=== PATIENT | female | born 1960 | race African-American/Black ===

== ENCOUNTER 2016-11-11 11:22 | Emergency (ER) | payer OTHER ==
[~2016-11-11] VITALS: Ht 167.6 cm; Wt 86.0 kg
[~2016-11-11 11:22] MED LIST: ATENOLOL25 M1 PO; COMBIVENT200 INHALA; CYCLOBENZAPRINE10 MG PO; ENDOCET 5-3251 EACH PO; GABAPENTIN400 MG PO; LISINOPRIL10 MG PO; LOVENOX40 MG/0.4 SC; MICARDIS HCT1 TABLET PO; MICARDIS40 MG PO; MORPHINE SULFAT15 M1 PO; NEXIUM20 MG PO; NEXIUM40 MG PO; NOHOMEMEDS; NORCO 5/3251 TABLET PO; NORVASC5 MG PO; OXYCODONE HCL5 MG PO; PERCOCET 10/1 TABLET PO; PERCOCET 5/31 TABLET PO; PERCOCET 7.5-31 EACH PO; PRILOSEC20 MG PO; PROAIR HFA8.5 GM IH; SPIRIVA1 INHALATI IH; SYMBICORT60 INHALAT IH; VALIUM5 MG PO; ZANTAC15 MG/ML PO; ZANTAC150 M1 PO
[2016-11-11] MEDS ORDERED: PEN-VEE K,VEET500 MG PO (14:15)
[2016-11-11 14:51] VITALS: BP 141/92
== END 2016-11-11 14:54 | disposition home or self-care (01) ==
LOC: EME 11:22
DX: S02.5XXA Fracture of tooth (traumatic), initial encounter for closed fracture (principal); K04.7 Periapical abscess without sinus; Z87.891 Personal history of nicotine dependence
CPT/HCPCS: 99281; 99283

== ENCOUNTER 2017-01-08 16:02 | Emergency (ER) | payer OTHER ==
[~2017-01-08] VITALS: Ht 167.6 cm; Wt 88.6 kg
[~2017-01-08 16:02] MED LIST changes: +PEN-VEE K,VEET500 MG PO
[2017-01-08 16:11] VITALS: BP 124/87
[2017-01-08] MEDS ORDERED: ULTRAM50 MG PO (17:37)
== END 2017-01-08 17:51 | disposition home or self-care (01) ==
LOC: EME 16:02
DX: S83.91XA Sprain of unspecified site of right knee, initial encounter (principal); I10 Essential (primary) hypertension; Z87.891 Personal history of nicotine dependence; Z96.651 Presence of right artificial knee joint
CPT/HCPCS: 73564; 99281; 99283

== ENCOUNTER 2017-03-09 14:47 | Emergency (ER) | payer OTHER ==
[~2017-03-09] VITALS: Ht 167.6 cm; Wt 88.3 kg
[~2017-03-09 14:47] MED LIST changes: +ULTRAM50 MG PO
[2017-03-09] MEDS ORDERED: MOBIC7.5 MG PO (15:27)
[2017-03-09 15:53] VITALS: BP 142/97
== END 2017-03-09 15:56 | disposition home or self-care (01) ==
LOC: EXP 14:47 → EME 14:47 → EXP 15:56
DX: S40.021A Contusion of right upper arm, initial encounter (principal); W01.0XXA Fall on same level from slipping, tripping and stumbling without subsequent striking against object, initial encounter; J44.9 Chronic obstructive pulmonary disease, unspecified; I10 Essential (primary) hypertension; G89.29 Other chronic pain; M54.9 Dorsalgia, unspecified; F17.200 Nicotine dependence, unspecified, uncomplicated
CPT/HCPCS: 99281; 99284

== ENCOUNTER 2017-06-23 18:25 | Emergency (ER) | payer OTHER ==
[~2017-06-23] VITALS: Ht 167.6 cm; Wt 98.1 kg
[~2017-06-23 18:25] MED LIST changes: +MOBIC7.5 MG PO
[2017-06-23] MEDS ORDERED: LISINOPRIL20 MG PO (19:06)
[2017-06-23] MEDS ORDERED: DIAZEPAM5 MG PO (19:06)
[2017-06-23] MEDS ORDERED: ENDOCET 5-3251 EACH PO (19:07)
[2017-06-23] MEDS ORDERED: TIZANIDINE HCL2 MG PO (19:08)
[2017-06-23 20:38] VITALS: BP 131/94
== END 2017-06-23 20:38 | disposition home or self-care (01) ==
LOC: EME 18:25
DX: S39.012A Strain of muscle, fascia and tendon of lower back, initial encounter (principal); S80.01XA Contusion of right knee, initial encounter; W10.1XXA Fall (on)(from) sidewalk curb, initial encounter; Y92.512 Supermarket, store or market as the place of occurrence of the external cause; I10 Essential (primary) hypertension; J44.9 Chronic obstructive pulmonary disease, unspecified; K21.9 Gastro-esophageal reflux disease without esophagitis; Z96.651 Presence of right artificial knee joint; F17.200 Nicotine dependence, unspecified, uncomplicated; Z88.1 Allergy status to other antibiotic agents
CPT/HCPCS: 72100; 73564; 99281; 99283; J1885